=== PATIENT | male | born 1990 | race American Indian/Alaskan Native ===

== ENCOUNTER 2020-04-18 09:54 | Emergency (ER) | payer SELFPAY ==
[2020-04-18] MEDS ORDERED: ACETAMINOPHEN 325 MG TAB PO STA (10:44)
[2020-04-18] MEDS ORDERED: ONDANSETRON 4 MG ODT TAB PO STA (10:44)
--- NOTE | 2020-04-18 10:46 | Emergency Department Report ---
ED General Adult HPI - General Chief complaint: Nausea/Vomiting/Diarrhea Stated complaint: STOMACH, DIARREHA PUI?: No Time Seen by Provider: 04/18/20 10:39 Source: patient, RN notes reviewed Mode of arrival: Ambulatory Limitations: No Limitations - History of Present Illness Initial comments: The patient was evaluated in the emergency department for symptoms described in the history of present illness. He/she was evaluated in the context of the global COVID-19 pandemic, which necessitated consideration that the patient migh t be at risk for infection with the virus that causes COVID-19. Institutional protocols and algorithms that pertain to the evaluation of patients at risk for COVID-19 are in a state of rapid change based on information released by regulatory bodies including the CDC and federal and state organizations. These policies and algorithms were followed during the patient's care in the emergency department. Please note that these policies, procedures and recommendations changed on a rapid basis. Patient is a pleasant 29-year-old gentleman who is not known to myself previously, who states he does not have a primary care doctor, and denies chronic medical conditions. The patient presents to the ER with a complaint of green watery loose bowel movements, 3-4 episodes today, nonbloody, 3-4 episodes yesterday, similar,, and this started 3 to 4 days ago, after the patient "ate some bad Wheaties." He denies headache, neck pain, chest pain, he has no abdominal pain at this time, he reports nausea but no vomiting, no testicular pain, no urinary symptoms. No recent travel, sick contacts, no family members with similar symptoms, he denies recent antibiotic use. -: Gradual, days(s) Consistency: intermittent Improves with: none Worsens with: none - Related Data Previous Rx's Medication Instructions Recorded Last Taken Type Acetaminophen [Non-Aspirin Extra 500 mg PO Q6HR PRN #30 tablet 04/18/20 Unknown Rx Strength] Ibuprofen [Motrin] 400 mg PO Q8H PRN #30 tablet 04/18/20 Unknown Rx Ondansetron [Zofran Odt] 4 mg PO Q8HR PRN #20 tab.rapdis 04/18/20 Unknown Rx Allergies Allergy/AdvReac Type Severity Reaction Status Date / Time No Known Allergies Allergy Unverified 04/18/20 09:58 ED Review of Systems ROS: Stated complaint: STOMACH, DIARREHA Other details as noted in HPI Constitutional: denies: fever ENT: denies: dental pain Respiratory: denies: cough Cardiovascular: denies: chest pain Gastrointestinal: vomiting, diarrhea. denies: nausea, hematemesis, melena, hematochezia Genitourinary: denies: dysuria, testicular pain Musculoskeletal: denies: myalgia Neurological: denies: weakness Hematological/Lymphatic: denies: easy bleeding ED Past Medical Hx - Past Medical History Previous Medical History?: No - Surgical History Past Surgical History?: No - Social History Smoking Status: Current Every Day Smoker Substance Use Type: Alcohol - Medications Home Medications: Home Medications Medication Instructions Recorded Confirmed Last Taken Type Acetaminophen [Non-Aspirin Extra 500 mg PO Q6HR PRN #30 tablet 04/18/20 Unknown Rx Strength] Ibuprofen [Motrin] 400 mg PO Q8H PRN #30 tablet 04/18/20 Unknown Rx Ondansetron [Zofran Odt] 4 mg PO Q8HR PRN #20 tab.rapdis 04/18/20 Unknown Rx ED Physical Exam - General Limitations: No Limitations General appearance: alert, anxious - Head Head exam: Present: atraumatic, normocephalic - Eye Eye exam: Present: normal appearance, EOMI. Absent: nystagmus - ENT ENT exam: Present: normal exam, normal orophraynx, mucous membranes moist, normal external ear exam - Neck Neck exam: Present: normal inspection, full ROM. Absent: tenderness, meningismus - Respiratory Respiratory exam: Present: normal lung sounds bilaterally. Absent: respiratory distress, wheezes, rales, rhonchi, stridor, decreased breath sounds - Cardiovascular Cardiovascular Exam: Present: regular rate, normal rhythm, normal heart sounds. Absent: bradycardia, tachycardia, irregular rhythm, systolic murmur, diastolic murmur, rubs, gallop - GI/Abdominal GI/Abdominal exam: Present: soft, normal bowel sounds. Absent: distended, tenderness, guarding, rebound, rigid, pulsatile mass - Rectal Rectal exam: Present: deferred - Extremities Exam Extremities exam: Present: normal inspection, full ROM, other (2+ pulses noted in the bilateral upper and lower extremities. There is no palpable cord. negative Homans sign. Muscular compartments are soft. The pelvis is stable.). Absent: pedal edema, calf tenderness - Back Exam Back exam: Present: normal inspection, full ROM. Absent: tenderness, CVA tenderness (R), CVA tenderness (L), paraspinal tenderness, vertebral tenderness - Neurological Exam Neurological exam: Present: alert, normal gait, other (No facial droop. Tongue midline. Extraocular movements intact bilaterally. Facial sensation intact to light touch in V1, V2, V3 distribution bilaterally. 5 and a 5 strength in 4 extremities. Sensation intact to light touch in 4 extremities.). Absent: motor sensory deficit - Psychiatric Psychiatric exam: Present: anxious - Skin Skin exam: Present: warm, dry, intact, normal color. Absent: rash ED Course Vital Signs 04/18/20 04/18/20 09:59 10:43 Temperature 97.9 F 97.6 F Pulse Rate 98 H 98 H Respiratory 20 21 Rate Blood Pressure 121/86 Blood Pressure 115/69 [Left] O2 Sat by Pulse 98 97 Oximetry ED Medical Decision Making - Lab Data Vital Signs 04/18/20 04/18/20 09:59 10:43 Temperature 97.9 F 97.6 F Pulse Rate 98 H 98 H Respiratory 20 21 Rate Blood Pressure 121/86 Blood Pressure 115/69 [Left] O2 Sat by Pulse 98 97 Oximetry - Medical Decision Making Differential diagnosis, including but not limited to: Enteritis, diarrhea Assessment and plan: 29-year-old gentleman, with reported history of diarrhea, on day 3/4, who is afebrile, with reassuring vital signs, with no abdominal tenderness, rebound or guarding, no peritoneal signs, no right upper quadrant or right lower quadrant tenderness, tolerating oral feeds, with a benign and unremarkable physical examination. This patient does not appear to have an emergent condition today, this can be managed supportively and expectantly. We discussed diet lifestyle modifications, he can be discharged with as needed pain medication, nausea medication, patient instructed to drink plenty of fluids, and eat plenty of fiber, vegetables, and lean protein, he may also consume oatmeal or fiber supplementation as a stool bulking agent. Critical care attestation.: If time is entered above; I have spent that time in minutes in the direct care of this critically ill patient, excluding procedure time. ED Disposition Clinical Impression: History of diarrhea Disposition: - TO HOME OR SELFCARE Is pt being admited?: No Does the pt Need Aspirin: No Condition: Stable Additional Instructions: Advance diet as tolerated. Drink plenty of water, and consume plenty of fiber, vegetables, and lean protein. Wash hands frequently, thoroughly and often, diarrhea is typically a self resolving medical issue. Patient may take the prescribed nausea medication and pain medications as needed and directed. Please follow-up with a primary care doctor within the next 4 to 6 weeks. Please return to the emergency room right away with new pain, worsened pain, migration of pain, projectile vomiting, change in mental status, confusion, inability to tolerate liquid feeds, new, worsened or different symptoms not present on the initial emergency room evaluation. Referrals: JODIE RANDOLPH MD [Staff Physician] - 3-[address] [facility] [Provider Group] - 3-5 Days
[2020-04-18 11:36] VITALS: BP 115/69
== END 2020-04-18 11:40 | disposition home or self-care (01) ==
LOC: ED 09:54
DX: F17.200 Nicotine dependence, unspecified, uncomplicated (principal); Z87.898 Personal history of other specified conditions; Z79.899 Other long term (current) drug therapy
CPT/HCPCS: 99282; Q0162